=== PATIENT | female | born 1970 | race Caucasian/White ===

== ENCOUNTER 2016-09-23 21:07 | Observation (INO) | payer BC ==
[2016-09-24 00:28] LABS: Hematocrit 38 % (35-47); Hemoglobin 12.5 g/dl (12.0-16.0); Mean Corpuscular HGB Conc 33 g/dl (31-36); Mean Corpuscular Hemoglobin 32 pg (27-31); Mean Corpuscular Volume 96 fL (80-97); Mean Platelet Volume 7 um3 (7.4-10.4); Red Blood Count 3.95 10^6/ul (4.0-5.4); Red Cell Distribution Width 14 % (10.5-15); White Blood Count 6.7 10^3/ul (3.5-10.8)
[2016-09-24] MEDS ORDERED: Ondansetron INJ* 2 MG/ML VIAL IV ONE (00:31)
[2016-09-24] MEDS ORDERED: Morphine INJ* 10 MG/ML 1 ML SYRINGE ONE (00:40)
[2016-09-24 00:43] LABS: Albumin 4.4 g/dL (3.2-5.2); BUN/Creatinine Ratio 19.5 (8-20); C Reactive Protein 2.97 mg/L (< 5.00); EGFR African American 104.7 (>60); EGFR Non-African American 81.4 (>60); Globulin 2.5 g/dL (2-4); Potassium 3.7 mmol/L (3.5-5.0); Total Bilirubin 0.5 mg/dL (0.2-1.0); Total Protein 6.9 g/dL (6.4-8.9)
[2016-09-24] MEDS: Morphine INJ* 4 MG/ML 1 ML SYRINGE IV ONE ×2 (00:48→06:59)
[2016-09-24] MEDS ORDERED: Iohexol 300* (CONTRAST) 10 ML SDV IV ONE (02:16)
[2016-09-24] MEDS ORDERED: NS 0.9% 1000 ML* 1,000 ML BOLUS SCH (02:30)
--- NOTE | 2016-09-24 08:10 | ED ---
Sekou Garcia Rebecca, scribed for Lisa Smith MD on 09/23/16 at 2348 . Abdominal Pain/Female - HPI Summary HPI Summary: Pt is a 46 y/o F who presents to ED c/o abd pain. Pain began suddenly this morning upon waking up and has been constant since onset, waxing and waning in intensity. Pain is diffuse cramping without radiation and is currently moderate , ranked 5/10 though in triage it was noted to be 4/10. Sx alleviated by BM, aggravated by nothing. Additionally c/o decreased PO intake secondary to pain and nausea, which is improving. Denies diarrhea, blood in stool, fever. No PMHx diverticulitis. PMHx metastatic ovarian CA. PSHx total hysterectomy in 2008. Ovarian CA was first diagnosed in 2008, then in 2013 it metastasized to her R hip, which is inoperable. She is currently on cytoxan for chemotherapy, taken daily. Pt has had multiple prior chemo regimens. Pt states she took zofran twice today for nausea. Has a gynecologic oncolgy surgeon in [facility] Dr. Linda Yang, sees Dr. Lynne at [facility] [place], and Dr. Rivera is her PCP. - History of Current Complaint Chief Complaint: EDAbdPain Stated Complaint: ABD PAIN/UNABLE TO EAT OR DRINK Time Seen by Provider: 09/23/16 23:47 Hx Obtained From: Patient, Family/Reverse Unit Operator - female partner Hx Last Menstrual Period: hyster for CA - 07/2008 Onset/Duration: Sudden Onset, Still Present Timing: Constant Severity Initially: Moderate - 4/10 Severity Currently: Moderate Pain Intensity: 5 Pain Scale Used: 0-10 Numeric Location: Diffuse Radiates: No Character: Cramping Aggravating Factor(s): Nothing Alleviating Factor(s): Bowel Movement Associated Signs and Symptoms: Positive: Nausea - improving, Other: - Decreased PO intake. Negative: Fever, Blood in Stool, Diarrhea Allergies/Adverse Reactions: Allergies Allergy/AdvReac Type Severity Reaction Status Date / Time Rofecoxib [From Vioxx] Allergy Severe Swelling Verified 07/20/16 12:37 cats Allergy Itching Uncoded 07/20/16 12:37 SEASONAL ALLERGY Allergy SNEEZING, Uncoded 07/20/16 12:37 ITCHY WATERY EYE, RUNNY NOSE Home Medications: Home Medications Calcium [Oyster-Lul 500] 500 mg PO DAILY 09/24/16 [History Confirmed 09/24/16] Docusate Sodium [Colace] 100 mg PO DAILY 09/24/16 [History Confirmed 09/24/16] Magnesium 250 mg PO BID 09/24/16 [History Confirmed 09/24/16] PMH/Surg Hx/FS Hx/Imm Hx Previously Healthy: No - metastatic ovarian CA Endocrine/Hematology History: Reports: Hx Anemia - CHRONIC Denies: Hx Diabetes, Hx Systemic Lupus Erythematosus Cardiovascular History: Denies: Hx Congestive Heart Failure, Hx Hypertension, Hx Pacemaker/ICD, Other Cardiovascular Problems/Disorders Respiratory History: Reports: Hx Asthma - with seasonal allergies, Hx Seasonal Allergies, Hx Sleep Apnea - DENIES SHE STILL HAS IT, IMPROVED Denies: Hx Chronic Obstructive Pulmonary Disease (COPD) GI History: Reports: Hx Gastroesophageal Reflux Disease - CONTROL WITH MED, Hx Hiatal Hernia - NO PROBLEM, Other GI Disorders - CHRONIC NAUSEA HISTORY WITH CHEMO Denies: Hx Diverticulosis, Hx Ulcer History: Denies: Hx Dialysis, Hx Renal Disease Musculoskeletal History: Reports: Hx Arthritis - LEFT KNEE, Other Musculoskeletal History - TUMOR RIGHT ILIAC CREST Sensory History: Reports: Hx Cataracts - SLIGHT BILAT, Hx Contacts or Glasses - GLASSES Denies: Hx Hearing Aid Opthamlomology History: Reports: Hx Cataracts - SLIGHT BILAT, Hx Contacts or Glasses - GLASSES Neurological History: Reports: Other Neuro Impairments/Disorders - HX OF RIGHT CARPAL TUNNEL SYNDROME Psychiatric History: Reports: Hx Anxiety - CONTROL WITH MEDS, Hx Depression Denies: Hx Panic Disorder, Other Psychiatric Issues/Disorders - Cancer History Cancer Type, Location and Year: malig Right ovary Hx Chemotherapy: Yes - Surgical History Surgery Procedure, Year, and Place: 2008 HYSTERECTOMY BILATERAL S&O FOR OVARIAN CANCER, [place]. 2012 BENIGN RIGHT HIP SURGERY, [place]. 2013 LAPAROSCOPIC SLEEVE GASTRECTOMY, [facility] [place] 2010 &02/2015 INCISIONAL HERNIA REPAIR, [facility] [place]. 1998 BILATERAL KNEE ARTHROSCOPIC [place], [place] [facility]: Yes - DIFFICULTY BREATHING R/T SLEEP [facility] IN 2010 Infectious Disease History: No Infectious Disease History: Denies: Hx Clostridium Difficile, Hx Hepatitis, Hx Human Immunodeficiency Virus (HIV), Hx of Known/Suspected MRSA, Hx Shingles, Hx Tuberculosis, Hx Known/ Suspected VRE, Hx Known/Suspected VRSA, History Other Infectious Disease, Traveled Outside the [place] in Last 30 Days - Family History Known Family History: Positive: Hypertension, Other - HLD - Social History Alcohol Use: Rare Substance Use Type: Reports: Marijuana Substance Use Comment - Amount & Last Used: vaporizes it- not inhaled Smoking Status (MU): Never Smoked Tobacco Have You Smoked in the Last Year: No Review of Systems Negative: Fever Cardiovascular: Negative Respiratory: Negative Positive: Abdominal Pain - diffuse cramping, Nausea - improving, Other - Decreased PO intake; Denies blood in stool. Negative: Diarrhea Genitourinary: Negative Positive: Arthralgia - right hip pain, worsening Neurological: Negative Psychological: Normal All Other Systems Reviewed And Are Negative: Yes Physical Exam Triage Information Reviewed: Yes Vital Signs On Initial Exam: Initial Vitals Temp Pulse Resp BP Pulse Ox 97.9 F 111 18 109/74 100 09/23/16 21:10 09/23/16 21:10 09/23/16 21:10 09/23/16 21:10 09/23/16 21:10 Vital Signs Reviewed: Yes Appearance: Positive: Well-Appearing, Well-Nourished, Pain Distress Skin: Positive: Warm, Skin Color Reflects Adequate Perfusion Head/Face: Positive: Normal Head/Face Inspection Eyes: Positive: Conjunctiva Clear ENT: Positive: Normal ENT inspection Neck: Positive: Supple Respiratory/Lung Sounds: Positive: Clear to Auscultation, Breath Sounds Present , Other - No respiratory distress Cardiovascular: Positive: RRR, Pulses are Symmetrical in both Upper and Lower Extremities, Other - Brisk capillary refill Abdomen Description: Positive: Soft, McBurney's Point Tenderness, Other: - Tenderness in the RLQ at McBurney's point; Midline scar on the abdomen. Negative: Distended, Guarding, Hernia @, Peritoneal Signs, Splenomegaly Bowel Sounds: Positive: Present Musculoskeletal: Positive: Strength/ROM Intact Neurological: Positive: Sensory/Motor Intact, Alert, Oriented to Person Place, Time. Negative: Facial Droop, Focal Deficit @, Slurred Speech Psychiatric: Positive: Normal Diagnostics - Vital Signs Vital Signs Temp Pulse Resp BP Pulse Ox 09/23/16 22:37 98.3 F 74 16 130/83 98 09/23/16 22:13 99.5 F 89 131/80 95 09/23/16 21:10 97.9 F 111 18 109/74 100 - Laboratory Lab Results: Lab Results 09/24/16 09/24/16 09/24/16 Range/Units 00:16 00:16 00:16 WBC 6.7 (3.5-10.8) 10^3/ul RBC 3.95 L (4.0-5.4) 10^6/ul Hgb 12.5 (12.0-16.0) g/dl Hct 38 (35-47) % MCV 96 (80-97) fL MCH 32 H (27-31) pg MCHC 33 (31-36) g/dl RDW 14 (10.5-15) % Plt Count 211 (150-450) 10^3/ul MPV 7 L (7.4-10.4) um3 Neut % (Auto) 80.8 (38-83) % Lymph % (Auto) 13.8 L (25-47) % [place] % (Auto) 5.1 (1-9) % Eos % (Auto) 0 (0-6) % Baso % (Auto) 0.3 (0-2) % Absolute Neuts (auto) 5.4 (1.5-7.7) 10^3/ul Absolute Lymphs (auto) 0.9 L (1.0-4.8) 10^3/ul Absolute Monos (auto) 0.3 (0-0.8) 10^3/ul Absolute Eos (auto) 0 (0-0.6) 10^3/ul Absolute Basos (auto) 0 (0-0.2) 10^3/ul Absolute Nucleated RBC 0 10^3/ul Nucleated RBC % 0 Sodium 135 (133-145) mmol/L Potassium 3.7 (3.5-5.0) mmol/L Chloride 99 L (101-111) mmol/L Carbon Dioxide 29 (22-32) mmol/L Anion Gap 7 (2-11) mmol/L BUN 15 (6-24) mg/dL Creatinine 0.77 (0.51-0.95) mg/dL Est GFR ( Amer) 104.7 (>60) Est GFR (Non-Af Amer) 81.4 (>60) BUN/Creatinine Ratio 19.5 (8-20) Glucose 111 H (70-100) mg/dL Lactic Acid 0.7 (0.5-2.0) mmol/L Calcium 10.0 (8.6-10.3) mg/dL Total Bilirubin 0.50 (0.2-1.0) mg/dL AST 16 (13-39) U/L ALT 10 (7-52) U/L Alkaline Phosphatase 74 (34-104) U/L C-Reactive Protein 2.97 (< 5.00) mg/L Total Protein 6.9 (6.4-8.9) g/dL Albumin 4.4 (3.2-5.2) g/dL Globulin 2.5 (2-4) g/dL Albumin/Globulin Ratio 1.8 (1-3) Lipase 29 (11.0-82.0) U/L /11/03 Range/Units 07:00 WBC (3.5-10.8) 10^3/ul RBC (4.0-5.4) 10^6/ul Hgb (12.0-16.0) g/dl Hct (35-47) % MCV (80-97) fL MCH (27-31) pg MCHC (31-36) g/dl RDW (10.5-15) % Plt Count (150-450) 10^3/ul MPV (7.4-10.4) um3 Neut % (Auto) (38-83) % Lymph % (Auto) (25-47) % [place] % (Auto) (1-9) % Eos % (Auto) (0-6) % Baso % (Auto) (0-2) % Absolute Neuts (auto) (1.5-7.7) 10^3/ul Absolute Lymphs (auto) (1.0-4.8) 10^3/ul Absolute Monos (auto) (0-0.8) 10^3/ul Absolute Eos (auto) (0-0.6) 10^3/ul Absolute Basos (auto) (0-0.2) 10^3/ul Absolute Nucleated RBC 10^3/ul Nucleated RBC % Sodium (133-145) mmol/L Potassium (3.5-5.0) mmol/L Chloride (101-111) mmol/L Carbon Dioxide (22-32) mmol/L Anion Gap (2-11) mmol/L BUN (6-24) mg/dL Creatinine (0.51-0.95) mg/dL Est GFR ( Amer) (>60) Est GFR (Non-Af Amer) (>60) BUN/Creatinine Ratio (8-20) Glucose (70-100) mg/dL Lactic Acid 0.5 (0.5-2.0) mmol/L Calcium (8.6-10.3) mg/dL Total Bilirubin (0.2-1.0) mg/dL AST (13-39) U/L ALT (7-52) U/L Alkaline Phosphatase (34-104) U/L C-Reactive Protein (< 5.00) mg/L Total Protein (6.4-8.9) g/dL Albumin (3.2-5.2) g/dL Globulin (2-4) g/dL Albumin/Globulin Ratio (1-3) Lipase (11.0-82.0) U/L Result Diagrams: 09/24/16 00:16 09/24/16 00:16 Lab Statement: Any lab studies that have been ordered have been reviewed, and results considered in the medical decision making process. - CT CT Abd/Pel W/ Contrast CT Interpretation: Positive (See Comments) - Low grade small bowel obstruction. Right pelvic sidewall mass likely reflects neoplastic lymph nodes. Abdominal wall collection possibly hematoma from previous surgical procedure. CT Interpretation Completed By: Radiologist Re-Evaluation - Re-Evaluation First Eval Re-Evaluation Time: 05:44 Change: Improved Comment: Updated the pt on the status of the CT and the discusison with Dr. Mcclain. Second Eval Re-Evaluation Time: 08:05 Change: Improved Comment: Pt still with mild abd pain, had a loose BM, still with right hip pain. Dr. Tracy lyle to eval pt. Abdominal Pain Fem Course/Dx - Course Course Of Treatment: Pt is a 46 y/o F who presents to ED c/o constant moderate, diffuse cramping abdominal pain this morning. Sx alleviated by BM. Additionally c/o decreased PO intake secondary to pain and nausea, which is improving. Denies diarrhea, blood in stool, fever. No PMHx diverticulitis. PMHx metastatic ovarian CA. PSHx total hysterectomy in 2008. Ovarian CA was first diagnosed in 2008, then in 2013 it metastasized to her R hip, which is inoperable. She is currently on cytoxan for chemotherapy, taken daily. Discussed care of pt with Dr. Mcclain who reported he will call oncology and see if oncology will admit the pt. Pt will be admitted with Dx of abdominal pain and small bowel obstruction. Allergies noted. Pt medications reviewed this visit. - Diagnoses Provider Diagnoses: Abdominal pain, Small bowel obstruction, Metastatic malignant neoplasm to ovary - Provider Notifications Discussed Care Of Patient With: Carlos Mcclain Time Discussed With Above Provider: 05:42 Instructed by Provider To: Other - He will call oncology and see if oncology will admit the pt. He will consult. Discharge - Discharge Plan Condition: Good Disposition: ADMITTED TO [facility] Referrals: Jace Rivera MD [Primary Care Provider] - The documentation as recorded by the Sekou ornelas Rebecca accurately reflects the service I personally performed and the decisions made by me, Lisa Smith MD.
--- NOTE | 2016-09-24 08:18 | RAD ---
CLINICAL HISTORY: Abdominal pain, history of metastatic ovarian cancer COMPARISON: July 20, 2016 TECHNIQUE: Multiple contiguous axial CT scans were obtained of the abdomen and pelvis after the administration of intravenous contrast. Coronal and sagittal multiplanar reformations are submitted for review. Oral contrast was administered. Delayed images were obtained through the abdomen and pelvis. FINDINGS: LUNG BASES: The lung bases are clear. LIVER: There is small low-attenuation lesion of the right lobe of liver. This extends from the previous examination. BILE DUCTS: There is no intrahepatic or extrahepatic biliary dilatation. GALLBLADDER: The gallbladder is normal, without pericholecystic inflammatory change. PANCREAS: The pancreas is normal, without mass or ductal dilatation. SPLEEN: Normal in size and appearance. UPPER GI TRACT: Evaluation of the gastrointestinal tract is limited by incomplete gastric distention. There is a small sliding hiatal hernia. There is post surgical change to the projected tract. SMALL BOWEL AND MESENTERY: There is minimal diffuse small bowel distention without transition point to suggest obstruction. The appearance is similar to July 20, 2016 COLON: Liquid stool is noted within the proximal colon. There is enlargement of stool within the distal colon ADRENALS: Normal bilaterally. KIDNEYS: The kidneys are normal in shape, size, contour, and axis. There is no hydronephrosis or nephrolithiasis. BLADDER: The bladder is collapsed and is not well evaluated PELVIC ORGANS: The pelvic organs are not visualized. Again noted is pelvic sidewall mass further described below. AORTA: The aorta is normal. IVC: Unremarkable LYMPH NODES: There is a complex cystic and solid mass of the right iliac chain with erosion of the adjacent bone, likely representing massive confluent pathologic lymph nodes. On the current examination, this measures 0.9 x 6.3 cm transversely compared to 4.9 x 5.11 measuring a comparable levels. Subjectively, this also appears increased in size. Additionally, there are pathologic preaortic lymph nodes best seen on axial image 94 measuring 1.6 cm in short axis, not clearly appreciated on the previous examination. ABDOMINAL WALL: There is post surgical change to the anterior abdominal wall, stable from the previous examination. BONES AND SOFT TISSUES: Degenerative changes are noted of the spine. As noted above, there is resolution of the right pelvis by the side wall mass. Additionally, there is a lytic lesion of the right inferior pubic ramus OTHER: None IMPRESSION: AGAIN NOTED IS A RIGHT PELVIC SIDEWALL MASS, LIKELY REPRESENTING CONFLUENT PATHOLOGIC LYMPH NODES. THIS HAS INCREASED IN SIZE WHEN COMPARED TO JULY 20, 2016. ADDITIONALLY, THERE HAS BEEN DEVELOPMENT OF PATHOLOGIC PERIAORTIC LYMPH NODES. TAKEN TOGETHER, THIS CONCERNING FOR PROGRESSION OF METASTATIC DISEASE.
[2016-09-24] MEDS ORDERED: Morphine INJ* 10 MG/ML 1 ML SYRINGE IV PRN (09:08)
[2016-09-24] MEDS ORDERED: Ondansetron INJ* 2 MG/ML VIAL IV PRN (09:08)
[2016-09-24] MEDS ORDERED: LORazepam TAB(*) 0.5 MG PO PRN (09:14)
[2016-09-24] MEDS ORDERED: Ondansetron TAB* 4 MG PO PRN (09:14)
[2016-09-24] MEDS ORDERED: NS 0.9% 1000 ML* 1,000 ML IV SCH (09:15)
[2016-09-24] MEDS ORDERED: Scopolamine 1.5 mg* PATCH TRANSDERM SCH (10:00)
[2016-09-24] MEDS: Morphine TAB Extended Release (*) 30 MG TAB.ER PO SCH ×3 (10:35→21:25)
[2016-09-24] MEDS: Enoxaparin(*) 40 MG/0.4 ML SYR SUBCUT SCH (10:36)
[2016-09-24] MEDS: BuPROPion XL* 300 MG TAB.XL PO SCH (10:37)
--- NOTE | 2016-09-24 12:07 | HP ---
ADMISSION HISTORY AND PHYSICAL: DATE OF ADMISSION: 09/24/16 REASON FOR ADMISSION: Abdominal pain and likely small bowel obstruction in a woman with metastatic ovarian cancer. HISTORY OF PRESENT ILLNESS: Clementine Tolentino is a 46-year-old female who has a history of stage I endometrial and stage I-C ovarian cancer originally diagnosed in 2008. At the time of her JOVANNA-BSO, she was found to have a grade 2 , stage I-B endometrial cancer and a stage I-C grade 2 endometrioid ovarian cancer. She had 6 cycles of carboplatin and Taxol followed by vaginal cuff brachytherapy after the initial diagnosis. In 2014, she was found to have a rising CA-125 tumor marker and was found to have a 9 cm right pelvic sidewall recurrence of her ovarian cancer. She was through the cisplatin and Gemzar for 6 treatments along with radiation therapy, which completed in August of 2014 and subsequent to that was placed on aromatase inhibitors. She remained on these until July of 2016, when she was found to have progressive disease and was switched to daily Cytoxan with metronomic dosing. She has remained on the Cytoxan for approximately last 6 weeks and has tolerated it well. She has had some mild nausea with the Cytoxan orally, but with this has taken 1 dose of p.o. Zofran at 4 mg per day and has the scopolamine patch and tolerates it well. She reports right up through 2 days ago she was feeling well and in fact ate better than her usual on that date. She was not having any abdominal pain, any nausea or vomiting and was moving her bowels regularly right up to 09/22/16. She awoke yesterday and noticed some diffuse abdominal pain, which was totally new for her. This is in addition to the right pelvic sidewall pain and pain towards the right hip related to the mass and a bony erosion known to have located in that location. In general, she takes MS Contin 30 mg t.i.d. and this was increased from b.i.d. approximately 6 to 8 weeks ago. This, in general , usually well controls her pain. Yesterday, she did not take any extra pain medications, but felt nauseous without vomiting, and did not move her bowels, had very little in the way of p.o. intake and felt very weak and fatigued. Her partner notified me last evening that she was having continued ongoing abdominal pain along with nausea and no bowel movements with decreased urine output and recommendation was to come to the emergency room. Since in the emergency room, she has received 2 L of IV fluids along with extra IV pain medication and has started moving her bowels, has had several small bowel movements which were formed; some of these before and some after the CT scan. Subsequent to the CT scan with oral contrast, she did have 1 loose bowel movement likely related to the oral contrast. She currently reports that her abdominal pain is feeling considerably better, down from 8/10 to approximately 1 /10. However, her mouth is still dry and she still feels fairly weak and has not taken anything in by mouth at all to this point. PAST MEDICAL HISTORY: Otherwise significant for having tested negative for BRCA1 and 2 mutations, history of asthma, previous history of anemia. History of depression and anxiety. MEDICATIONS: Medications at the time of admission include: 1. Cytoxan 50 mg daily. 2. Lexapro 20 mg daily. 3. MS Contin 30 mg t.i.d. 4. Short-acting morphine 15 mg p.r.n. 5. Scopolamine patch. 6. Zofran 4 mg p.r.n. 7. Wellbutrin 300 mg daily. 8. Zyrtec 10 mg daily. 9. Caltrate. 10. Colace p.r.n. 11. Multivitamin daily. 12. Requip 1 mg daily. FAMILY HISTORY: Father at age 71 of an [place], mother with hypertension. Two uncles and 1 aunt with cancer, none with breast or ovarian cancer. Grandmother with Hodgkin's lymphoma. SOCIAL HISTORY: The patient lives with her partner. REVIEW OF SYSTEMS: Energy level has been good until yesterday. Appetite good until yesterday. Weight is stable. No significant shortness of breath, chest pain, or palpitations. No significant neurologic complaints. GI: As discussed above. Emotionally doing well. Has a decreased libido. PHYSICAL EXAMINATION GENERAL: A 46-year-old female, in no acute distress, lying comfortably in bed in the emergency room. VITAL SIGNS: Blood pressure is 105/73, pulse 63, T-max 99.5. HEENT: PERRL, EOMI. No erythema or exudate. Dry mucous membranes. NECK: No cervical, supraclavicular, or axillary adenopathy. LUNGS: Clear. HEART: Regular rate and rhythm without murmurs, rubs, or gallops. ABDOMEN: Soft with mild right lower quadrant tenderness. No masses, organomegaly are noted. No guarding or rebound. EXTREMITIES: No clubbing, cyanosis, or edema. BACK: No CVA or spinal tenderness. LABORATORY STUDIES: CBC: White count 6700, hematocrit 38, hemoglobin 12.5, platelet count 211,000 with a normal differential. Chemistry studies: Sodium 135, potassium 3.7, chloride 99, bicarb 29, BUN 15, creatinine 0.77, glucose 111. LFTs are within normal limits. CA-125 tumor maker when checked 2 weeks ago was 226 similar to the readings when she started her Cytoxan. CT scan, I have reviewed the films personally and I have also reviewed the reports of both the overnight covering radiologist and our hospital radiologist who assessed regular films. To my view, the mass in the right lower quadrant does appear to be somewhat larger than before, also there has been more erosion into the bone. In addition, there was a new 1.6 cm preaortic lymph node, which was seen before, was normal size and that has increased in size. Radiologist reading the films here does agree that the right pelvic sidewall mass has increased somewhat in size compared to July. By his report, is not reporting any significant small bowel obstruction. To my eyes certainly the bowel loops are more dilated and there are only some of the loops of small bowel that contain contrast. The covering radiologist overnight reports some likely early small bowel obstruction and by his report feels that the mass in the right pelvic sidewall is stable from the previous study. IMPRESSION: 1. A 46-year-old female with a recurrent ovarian cancer, who now presents with a 1- day history of nausea, severe abdominal pain, decreased oral intake, lack of bowel movements for at least 24-hour period or more. Since in the emergency room, after having received 2 L of IV fluids and pain medication, is feeling considerably better. She has started passing stool at this point. She also as been passing some gas per rectum. It is likely that she has an early small bowel obstruction, which is already partially relieved. Given the fact that she has already been in the emergency room for almost 12 hours and has had nothing to take p.o., I think it would be prudent for her to be admitted as an observation patient and watched as we slowly advance her diet including initially some clear liquids and then on to hopefully more of a substantial diet over the course of today or tonight. If she continues to tolerate feel well and continues to tolerate oral both liquids and solids, it is certainly possible that she may be able to go home as soon as tomorrow. We will continue her MS Michelle on her usual dose of 30 mg t.i.d. She will receive IV pain medications as needed. She will have both her Zofran p.o. and Zofran IV available to her. For nausea, will be maintained on scopolamine patch. I believe it is likely that she has had some progression in the pelvic sidewall; however, this is not necessarily enough to meet the criteria for true progression to consider stopping her Cytoxan at this time. Given her nausea, which is usually mild with Cytoxan, it will, however, be held today, so as not to complicate trying to get her rehydrated and get her to be taking in solids. She will be maintained on normal saline 100 mL per hour over the course of the day today. 2. DVT prophylaxis: Lovenox 40 mg daily. 3. History of depression and anxiety. Will be maintained on Lexapro and Wellbutrin. 4. The situation has already been discussed with the emergency room physician and also with Dr. Mcclain of Surgery, Dr. Caballero of Surgery will be coming in to further evaluate and offer further recommendations. [id number]/CPS #: [id number] MTDD
--- NOTE | 2016-09-24 13:25 | CONSULT ---
Consult Consult: Surgery Consult Asked by Dr. Molina to evaluate a pt. with metastatic ovarian cancer and signs of SBO. Ms. Tolentino is a 46 y.o. female who reports she began to feel nauseated and diffuse abdominal pain yesterday. When the pain failed to resolve and she couldn't eat anything, she came to the ER. Here a CT was done and showed signs of SBO. Since coming to the ER, however, she has had 3 BMs and has felt less nauseated till now, when she says she is beginning to "feel tight" again. She denies fever, she was well till this and has never had something like this happen before. She notes that since starting Cytoxan she has lost 15 lbs. PMHx: depression, ovarian cancer, endometrial cancer Meds: see med rec All: Vioxx SH: neg. tob, neg. EtOH, neg. IVDA ROS: neg FH: parents HTN, father of an [place] PE: general: WDWN female in NAD Vital Signs 09/23/16 09/23/16 09/23/16 21:10 22:13 22:16 Temperature 97.9 F 99.5 F Pulse Rate 111 89 Respiratory 18 Rate Blood Pressure 109/74 131/80 138/83 (mmHg) O2 Sat by Pulse 100 95 Oximetry 09/23/16 09/23/16 09/23/16 22:18 22:30 22:37 Temperature 98.3 F Pulse Rate 79 75 74 Respiratory 16 Rate Blood Pressure 130/83 130/83 (mmHg) O2 Sat by Pulse 97 94 98 Oximetry 09/23/16 09/23/16 09/23/16 23:00 23:30 23:48 Temperature Pulse Rate 71 99 Respiratory Rate Blood Pressure 117/73 125/78 (mmHg) O2 Sat by Pulse 95 99 Oximetry 09/24/16 09/24/16 09/24/16 00:01 00:04 00:48 Temperature Pulse Rate 86 Respiratory 14 Rate Blood Pressure 136/83 (mmHg) O2 Sat by Pulse 99 Oximetry 09/24/16 09/24/16 09/24/16 01:05 01:30 02:00 Temperature Pulse Rate 84 86 75 Respiratory Rate Blood Pressure 144/89 136/96 (mmHg) O2 Sat by Pulse 99 100 100 Oximetry 09/24/16 09/24/16 09/24/16 02:30 05:13 06:00 Temperature Pulse Rate 81 70 72 Respiratory Rate Blood Pressure 132/81 (mmHg) O2 Sat by Pulse 100 99 100 Oximetry 09/24/16 09/24/16 09/24/16 06:59 07:00 07:25 Temperature Pulse Rate 65 59 Respiratory 14 Rate Blood Pressure 110/53 (mmHg) O2 Sat by Pulse 100 100 Oximetry 09/24/16 09/24/16 09/24/16 07:30 07:51 08:00 Temperature Pulse Rate 60 67 Respiratory Rate Blood Pressure 104/56 124/79 (mmHg) O2 Sat by Pulse 100 100 Oximetry 09/24/16 09/24/16 09/24/16 08:02 08:30 09:00 Temperature Pulse Rate 65 64 61 Respiratory Rate Blood Pressure 97/55 (mmHg) O2 Sat by Pulse 94 100 100 Oximetry 09/24/16 09/24/16 09/24/16 09:01 09:30 09:46 Temperature 97.7 F Pulse Rate 63 61 61 Respiratory 16 Rate Blood Pressure 105/73 113/70 130/73 (mmHg) O2 Sat by Pulse 100 100 99 Oximetry 09/24/16 09/24/16 10:21 10:35 Temperature Pulse Rate 61 Respiratory 16 15 Rate Blood Pressure 130/73 (mmHg) O2 Sat by Pulse 99 Oximetry HEENT: anicteric sclerae, moist oral mucosa, neg cervica adenopathy lungs: clear to ausc. heart: reg. abd: good BS, soft, mild bilateral LQ tenderness without guarding or rebound. Well healed midline scar without hernias, no groin hernias. ext: neg. cyanosis, edema Laboratory Results - last 24 hr 09/24/16 09/24/16 09/24/16 00:16 00:16 00:16 WBC 6.7 RBC 3.95 L Hgb 12.5 Hct 38 MCV 96 MCH 32 H MCHC 33 RDW 14 Plt Count 211 MPV 7 L Neut % (Auto) 80.8 Lymph % (Auto) 13.8 L [place] % (Auto) 5.1 Eos % (Auto) 0 Baso % (Auto) 0.3 Absolute Neuts (auto) 5.4 Absolute Lymphs (auto) 0.9 L Absolute Monos (auto) 0.3 Absolute Eos (auto) 0 Absolute Basos (auto) 0 Absolute Nucleated RBC 0 Nucleated RBC % 0 Sodium 135 Potassium 3.7 Chloride 99 L Carbon Dioxide 29 Anion Gap 7 BUN 15 Creatinine 0.77 Est GFR ( Amer) 104.7 Est GFR (Non-Af Amer) 81.4 BUN/Creatinine Ratio 19.5 Glucose 111 H Lactic Acid 0.7 Calcium 10.0 Total Bilirubin 0.50 AST 16 ALT 10 Alkaline Phosphatase 74 C-Reactive Protein 2.97 Total Protein 6.9 Albumin 4.4 Globulin 2.5 Albumin/Globulin Ratio 1.8 Lipase 29 09/24/16 07:00 WBC RBC Hgb Hct MCV MCH MCHC RDW Plt Count MPV Neut % (Auto) Lymph % (Auto) [place] % (Auto) Eos % (Auto) Baso % (Auto) Absolute Neuts (auto) Absolute Lymphs (auto) Absolute Monos (auto) Absolute Eos (auto) Absolute Basos (auto) Absolute Nucleated RBC Nucleated RBC % Sodium Potassium Chloride Carbon Dioxide Anion Gap BUN Creatinine Est GFR ( Amer) Est GFR (Non-Af Amer) BUN/Creatinine Ratio Glucose Lactic Acid 0.5 Calcium Total Bilirubin AST ALT Alkaline Phosphatase C-Reactive Protein Total Protein Albumin Globulin Albumin/Globulin Ratio Lipase A/P: 46 y.o. female with metastatic ovarian cancer now with apparently resolving early SBO. Agree with clear liquids and IVF. Will check AXR in AM. Will follow. Thanks, Mykel
[2016-09-24] MEDS: Ropinirole TAB* 0.5 MG TAB PO SCH (21:27)
[2016-09-24] MEDS: CMC:Escitalopram (NF) 10 MG TAB PO SCH (21:45)
[2016-09-25 05:23] LABS: Hematocrit 32 % (35-47); Hemoglobin 10.8 g/dl (12.0-16.0); Mean Corpuscular HGB Conc 33 g/dl (31-36); Mean Corpuscular Hemoglobin 32 pg (27-31); Mean Corpuscular Volume 95 fL (80-97); Mean Platelet Volume 6 um3 (7.4-10.4); Red Blood Count 3.41 10^6/ul (4.0-5.4); Red Cell Distribution Width 14 % (10.5-15); White Blood Count 3.1 10^3/ul (3.5-10.8)
[2016-09-25 05:25] LABS: Add Diff/Slide Review? Slide Review Added; Comments Flag Yes
[2016-09-25 05:43] LABS: BUN/Creatinine Ratio 9.3 (8-20); Calcium 9.1 mg/dL (8.6-10.3); EGFR Non-African American 83.9 (>60); Potassium 3.8 mmol/L (3.5-5.0)
[2016-09-25] MEDS: Morphine TAB Extended Release (*) 30 MG TAB.ER PO SCH ×3 (08:01→21:17)
[2016-09-25] MEDS: BuPROPion XL* 300 MG TAB.XL PO SCH (08:01)
[2016-09-25] MEDS: Docusate CAP* 100 MG PO SCH (08:01)
[2016-09-25] MEDS: Enoxaparin(*) 40 MG/0.4 ML SYR SUBCUT SCH (08:02)
--- NOTE | 2016-09-25 08:16 | PN ---
Progress Note - Progress Note Date of Service: 09/25/16 Note: Surgery Ms. Tolentino reports she is tolerating clear liquids and she denies nausea. But she is not passing either stool or flatus. She has some "soreness" in the abd. Vital Signs 09/24/16 09/24/16 09/24/16 08:30 09:00 09:01 Temperature Pulse Rate 64 61 63 Respiratory Rate Blood Pressure 97/55 105/73 (mmHg) O2 Sat by Pulse 100 100 100 Oximetry 09/24/16 09/24/16 09/24/16 09:30 09:46 10:21 Temperature 97.7 F Pulse Rate 61 61 61 Respiratory 17 16 Rate Blood Pressure 113/70 130/73 130/73 (mmHg) O2 Sat by Pulse 100 99 99 Oximetry 09/24/16 09/24/16 09/24/16 10:35 12:35 15:33 Temperature 98.7 F Pulse Rate 65 Respiratory 15 15 18 Rate Blood Pressure 127/77 (mmHg) O2 Sat by Pulse 99 Oximetry 09/24/16 09/24/16 09/24/16 15:38 17:38 20:00 Temperature Pulse Rate Respiratory 17 15 16 Rate Blood Pressure (mmHg) O2 Sat by Pulse Oximetry 09/24/16 09/24/16 09/24/16 20:13 21:25 23:25 Temperature 98.5 F Pulse Rate 64 Respiratory 16 16 16 Rate Blood Pressure 120/77 (mmHg) O2 Sat by Pulse 100 Oximetry 09/25/16 09/25/16 09/25/16 00:08 05:06 07:56 Temperature 98.1 F 97.6 F 98.6 F Pulse Rate 60 65 64 Respiratory 16 16 16 Rate Blood Pressure 131/70 124/63 143/76 (mmHg) O2 Sat by Pulse 99 100 95 Oximetry 09/25/16 08:01 Temperature Pulse Rate Respiratory 18 Rate Blood Pressure (mmHg) O2 Sat by Pulse Oximetry Abd: good BS, soft, mildly tender in RUQ and RLQ, no guarding or rebound. Intake & Output 09/24/16 09/25/16 09/25/16 22:59 06:59 14:59 Intake Total 1243 0 Balance 1243 0 Intake: IV Fluids 923 NS (0.9%) 923 Oral 320 0 Other: Estimated Void Medium # Bowel Movements 0 # Voids 2 1 Laboratory Results - last 24 hr 07/09/17 07/09/17 05:05 05:05 WBC 3.1 L RBC 3.41 L Hgb 10.8 L Hct 32 L MCV 95 MCH 32 H MCHC 33 RDW 14 Plt Count 163 MPV 6 L Neut % (Auto) 64.9 Lymph % (Auto) 26.3 [place] % (Auto) 8.7 Eos % (Auto) 0 Baso % (Auto) 0.1 Absolute Neuts (auto) 2.0 Absolute Lymphs (auto) 0.8 L Absolute Monos (auto) 0.3 Absolute Eos (auto) 0 Absolute Basos (auto) 0 Absolute Nucleated RBC 0 Nucleated RBC % 0 Sodium 141 Potassium 3.8 Chloride 107 Carbon Dioxide 30 Anion Gap 4 BUN 7 Creatinine 0.75 Est GFR ( Amer) 108.0 Est GFR (Non-Af Amer) 83.9 BUN/Creatinine Ratio 9.3 Glucose 80 Calcium 9.1 AXR: some contrast into colon and gas and stool in rectum. A/P: Slight improvement, but still no movement. Would leave on clear liquids till some evidence of return of GI function.
--- NOTE | 2016-09-25 08:32 | RAD ---
HISTORY: Evaluate small bowel obstruction COMPARISONS: CT dated September 24, 2016 VIEWS: Frontal supine and upright views of the abdomen. FINDINGS: BOWEL: There is a nonspecific bowel gas pattern, with nondilated small bowel gas noted. Oral contrast is noted within the colon CALCULI: There are no abnormal calculi. BONES AND SOFT TISSUES: Degenerative changes are noted along the lower lumbar spine OTHER FINDINGS: The lung bases are clear. There is no subphrenic gas. IMPRESSION: NONSPECIFIC BOWEL GAS PATTERN. ORAL CONTRAST IS NOTED WITHIN THE COLON
[2016-09-25] MEDS: NS 0.9% 1000 ML* 1,000 ML IV SCH (11:32)
[2016-09-25] MEDS: Cetirizine* 10 MG TAB PO SCH (12:11)
[2016-09-25] MEDS: Ropinirole TAB* 0.5 MG TAB PO SCH (21:18)
[2016-09-25] MEDS: CMC:Escitalopram (NF) 10 MG TAB PO SCH (21:18)
[2016-09-26] MEDS: NS 0.9% 1000 ML* 1,000 ML IV SCH (00:45)
[2016-09-26 06:34] LABS: BUN/Creatinine Ratio 9.2 (8-20); EGFR African American 106.3 (>60); EGFR Non-African American 82.7 (>60); Potassium 3.7 mmol/L (3.5-5.0)
[2016-09-26 07:29] VITALS: BP 131/69
[2016-09-26] MEDS: Cetirizine* 10 MG TAB PO SCH (09:06)
[2016-09-26] MEDS: BuPROPion XL* 300 MG TAB.XL PO SCH (09:06)
[2016-09-26] MEDS: Morphine TAB Extended Release (*) 30 MG TAB.ER PO SCH (09:06)
[2016-09-26] MEDS: Docusate CAP* 100 MG PO SCH (09:06)
[2016-09-26] MEDS: Enoxaparin(*) 40 MG/0.4 ML SYR SUBCUT SCH (09:07)
--- NOTE | 2016-09-26 10:47 | PN ---
Progress Note - Progress Note Date of Service: 09/26/16 SOAP: Subjective: Doing very well, multiple BMs yesterday, tolerating regular diet. Ready to go home. Denies any complaints. Objective: VSS, afebrile Abdomen soft, NT, ND Assessment: Resolved SBO, doing well. Plan: Discharge to home. F/U with surgical associates as needed.
--- NOTE | 2016-09-26 11:08 | DS ---
CC: Dr. Yang, [place], [place] * DISCHARGE SUMMARY: DATE OF ADMISSION: 09/24/16 DATE OF DISCHARGE: 09/26/16 PRINCIPAL DIAGNOSES: 1. Small bowel obstruction with mild progression of disease from her ovarian cancer. 2. She has chronic pain syndrome secondary to her malignancy. HISTORY OF PRESENT ILLNESS: Briefly, patient was admitted to the hospital from the emergency room with significant abdominal pain and a history of ovarian cancer. Subsequently, she had received a CT scan of the abdomen, which revealed surgical changes of a partial gastrectomy, small hiatal hernia, the small bowel had multiple segments of proximal small bowel distended and contained fluid. Impression also showed low-grade small bowel obstruction, right pelvic sidewall mass which reflected a neoplastic lymph node, previous areas of surgical clips. Subsequent to that, the patient was seen by Surgery, Dr. Anai Caballero, who consulted and conservative measures were initiated and bowel rest. The patient did, subsequent to the bowel rest, open up and had a bowel movement this morning on 09/26/16 and has tolerated a soft diet for 24 hours. Her pain was under control throughout her hospital stay under her normal medications that she takes at home and had not required any additional IV morphine. Vital signs remained stable and afebrile throughout the course of her stay. DISCHARGE MEDICATIONS: She will be sent home on the following discharge medications: 1. Bupropion 300 mg p.o. q.a.m. 2. Calcium 500 mg p.o. daily. 3. Cetirizine 10 mg p.o. at p.m. 4. Colace 100 mg daily. 5. Lexapro 10 mg 2 tablets p.o. q.p.m. 6. one-half tab p.o. daily as needed for nausea. 7. Magnesium 250 mg p.o. twice daily. 8. Morphine extended release 15 mg 2 tabs p.o. 3 times daily. 9. Morphine 15 mg tabs p.o. 3 times daily as needed for breakthrough pain. 10. Multivitamin daily. 11. Zofran 8 mg every 6 hours as needed for nausea. 12. Ropinirole 0.5 mg tab 2 tabs p.o. at bedtime. 13. Scopolamine 1.5 mg patch transdermally every 72 hours as needed for nausea. She will follow up with Dr. Lynne in approximately 1 week. Labs to follow and call us with any further needs for abdominal pains. We will also send this discharge summary to Dr. Yang, her [facility] [employer] in [place], [place]. HOSPITAL COURSE: The patient was admitted to the hospital and placed on bowel rest and consulted with the local surgery service. Bowel rest was successful in alleviating possible early bowel obstruction. She has been instructed to continue on small meals and to go soft diet whenever needed and to call use with any additional abdominal pain. I will try to contact Dr. Yang regarding her restarting her Cytoxan. Her vital signs were stable at the time of her discharge. EMMA MAXWELL [id number]/[facility] #: [id number] MARK
== END 2016-09-26 11:00 | disposition home or self-care (01) ==
LOC: ED 21:07 → MED 09-24 09:08
PROVIDERS: ADMIT Internal Medicine Hematology & Oncology; ATTEND Internal Medicine Hematology & Oncology
DX: K56.60 Unspecified intestinal obstruction (principal); C56.9 Malignant neoplasm of unspecified ovary; C79.9 Secondary malignant neoplasm of unspecified site; G89.29 Other chronic pain; F32.9 Major depressive disorder, single episode, unspecified; F41.9 Anxiety disorder, unspecified; Z79.899 Other long term (current) drug therapy; Z88.8 Allergy status to other drugs, medicaments and biological substances
CPT/HCPCS: 36415; 74020; 74177; 80048; 80053; 83605; 83690; 85025; 86140; 96361; 96372; 96374; 96375; 96376; 99284; A9270-GY; G0378; J1642; J1650; J2270; J2405; Q9967

== ENCOUNTER 2016-10-19 18:04 | Emergency (ER) | payer BC ==
[2016-10-19] MEDS ORDERED: NS 0.9% 1000 ML* 1,000 ML IV ONE (19:28)
[2016-10-19] MEDS ORDERED: HYDROmorphone* 1 MG/ML 1 ML SYR IV SLOW PU ONE (19:28)
[2016-10-19 20:02] LABS: Hematocrit 34 % (35-47); Hemoglobin 11.2 g/dl (12.0-16.0); Mean Corpuscular HGB Conc 33 g/dl (31-36); Mean Corpuscular Hemoglobin 32 pg (27-31); Mean Corpuscular Volume 95 fL (80-97); Mean Platelet Volume 7 um3 (7.4-10.4); Red Blood Count 3.57 10^6/ul (4.0-5.4); Red Cell Distribution Width 14 % (10.5-15); White Blood Count 4.4 10^3/ul (3.5-10.8)
[2016-10-19 20:17] LABS: Albumin 3.8 g/dL (3.2-5.2); BUN/Creatinine Ratio 15.4 (8-20); Calcium 9.1 mg/dL (8.6-10.3); EGFR African American 127.3 (>60); Globulin 2.4 g/dL (2-4); Magnesium 1.8 mg/dL (1.9-2.7); Potassium 4.1 mmol/L (3.5-5.0); Total Bilirubin 0.4 mg/dL (0.2-1.0); Total Protein 6.2 g/dL (6.4-8.9)
--- NOTE | 2016-10-19 21:06 | ED ---
I, Trent,[place], scribed for Carlos Kruse MD on 10/19/16 at 1938 . Complex/Multi-Sys Presentation - HPI Summary HPI Summary: This 46 y/o female presents to ED for NIX, lower back pain, and diaphoresis after her chemo therapy this morning. Chemo therapy was first dose of this round after her last chemo in 2014. Pt took morphine and MS Contin at 1400 PM, took a nap, and woke up at 1600 PM with mid low back pain, NIX, and diaphoresis. Diaphoresis is currently spontaneously resolved, and pt states her NIX and back pain have moderately improved since the onset. Positive subjective fever. Temperature of 98.2 F noted at triage. Negative nausea. PMHx includes recurrent ovarian CA s/p chemo, radiation, and JOVANNA-BSO. Primary care involves Dr. Lynne and Dr. Yang. - History Of Current Complaint Chief Complaint: EDAllergicReaction Time Seen by Provider: 10/19/16 19:19 Hx Obtained From: Patient, Medical Records Onset/Duration: Sudden Onset, Still Present Associated Signs And Symptoms: Positive: Back Pain - mid low back pain, Fever - subjective fever, Other - NIX. Negative: Nausea, Vomiting - Allergies/Home Medications Allergies/Adverse Reactions: Allergies Allergy/AdvReac Type Severity Reaction Status Date / Time Rofecoxib [From Vioxx] Allergy Severe Swelling Verified 07/20/16 12:37 cats Allergy Itching Uncoded 07/20/16 12:37 SEASONAL ALLERGY Allergy SNEEZING, Uncoded 07/20/16 12:37 ITCHY WATERY EYE, RUNNY NOSE PMH/Surg Hx/FS Hx/Imm Hx Endocrine/Hematology History: Reports: Hx Anemia - CHRONIC Denies: Hx Diabetes, Hx Systemic Lupus Erythematosus Cardiovascular History: Denies: Hx Congestive Heart Failure, Hx Hypertension, Hx Pacemaker/ICD, Other Cardiovascular Problems/Disorders Respiratory History: Reports: Hx Asthma - with seasonal allergies, Hx Seasonal Allergies, Hx Sleep Apnea - DENIES SHE STILL HAS IT, IMPROVED Denies: Hx Chronic Obstructive Pulmonary Disease (COPD) GI History: Reports: Hx Gastroesophageal Reflux Disease - CONTROL WITH MED, Hx Hiatal Hernia - NO PROBLEM, Other GI Disorders - CHRONIC NAUSEA HISTORY WITH CHEMO Denies: Hx Diverticulosis, Hx Ulcer History: Denies: Hx Dialysis, Hx Renal Disease Musculoskeletal History: Reports: Hx Arthritis - LEFT KNEE, Other Musculoskeletal History - TUMOR RIGHT ILIAC CREST Sensory History: Reports: Hx Cataracts - SLIGHT BILAT, Hx Contacts or Glasses - GLASSES Denies: Hx Hearing Aid Opthamlomology History: Reports: Hx Cataracts - SLIGHT BILAT, Hx Contacts or Glasses - GLASSES Neurological History: Reports: Other Neuro Impairments/Disorders - HX OF RIGHT CARPAL TUNNEL SYNDROME Psychiatric History: Reports: Hx Anxiety - CONTROL WITH MEDS, Hx Depression Denies: Hx Panic Disorder, Other Psychiatric Issues/Disorders - Cancer History Cancer Type, Location and Year: malig Right ovary Hx Chemotherapy: Yes - Surgical History Surgery Procedure, Year, and Place: 2008 HYSTERECTOMY BILATERAL S&O FOR OVARIAN CANCER, [place]. 2012 BENIGN RIGHT HIP SURGERY, [place]. 2013 LAPAROSCOPIC SLEEVE GASTRECTOMY, [facility] [place]. 2010 &02/2015 INCISIONAL HERNIA REPAIR, [facility] [place]. 1998 BILATERAL KNEE ARTHROSCOPIC SURGERY, [place], [place]. 2008 & 2013 POWERPORT PLACEMENT, [place] Hx Anesthesia Reactions: Yes - DIFFICULTY BREATHING R/T SLEEP [place] IN 2010 Infectious Disease History: No Infectious Disease History: Denies: Hx Clostridium Difficile, Hx Hepatitis, Hx Human Immunodeficiency Virus (HIV), Hx of Known/Suspected MRSA, Hx Shingles, Hx Tuberculosis, Hx Known/ Suspected VRE, Hx Known/Suspected VRSA, History Other Infectious Disease, Traveled Outside the in Last 30 Days - Family History Known Family History: Positive: Hypertension, Other - HLD - Social History Alcohol Use: Rare Hx Substance Use: Yes Substance Use Type: Reports: Marijuana Substance Use Comment - Amount & Last Used: vaporizes it- not inhaled Hx Tobacco Use: No Smoking Status (MU): Never Smoked Tobacco Have You Smoked in the Last Year: No Review of Systems Positive: Fever - subjective fever. afebrile at triage, Skin Diaphoresis Negative: Vomiting, Nausea Positive: Other - mild low back pain Positive: Headache All Other Systems Reviewed And Are Negative: Yes Physical Exam Triage Information Reviewed: Yes Vital Signs On Initial Exam: Initial Vitals Temp Pulse Resp BP Pulse Ox 98.2 F 80 16 124/78 98 10/19/16 18:07 10/19/16 18:07 10/19/16 18:07 10/19/16 18:07 10/19/16 18:07 Vital Signs Reviewed: Yes Appearance: Positive: Well-Appearing, No Pain Distress Skin: Positive: Warm Head/Face: Positive: Normal Head/Face Inspection Eyes: Positive: STEVE ENT: Positive: Hearing grossly normal Neck: Positive: Supple, Nontender Respiratory/Lung Sounds: Positive: Clear to Auscultation, Breath Sounds Present Cardiovascular: Positive: RRR Abdomen Description: Positive: Nontender, Soft Bowel Sounds: Positive: Present Musculoskeletal: Positive: Strength/ROM Intact Neurological: Positive: Sensory/Motor Intact, Alert, Oriented to Person Place, Time Psychiatric: Positive: Affect/Mood Appropriate - [place] Coma Scale Coma Scale Total: 15 Diagnostics - Vital Signs Vital Signs Temp Pulse Resp BP Pulse Ox 10/19/16 18:46 75 98 10/19/16 18:45 130/61 10/19/16 18:07 98.2 F 80 16 124/78 98 - Laboratory Lab Results: Lab Results 10/19/16 10/19/16 Range/Units 19:50 19:50 WBC 4.4 (3.5-10.8) 10^3/ul RBC 3.57 L (4.0-5.4) 10^6/ul Hgb 11.2 L (12.0-16.0) g/dl Hct 34 L (35-47) % MCV 95 (80-97) fL MCH 32 H (27-31) pg MCHC 33 (31-36) g/dl RDW 14 (10.5-15) % Plt Count 189 (150-450) 10^3/ul MPV 7 L (7.4-10.4) um3 Neut % (Auto) 91.8 H (38-83) % Lymph % (Auto) 6.1 L (25-47) % [place] % (Auto) 2.0 (1-9) % Eos % (Auto) 0 (0-6) % Baso % (Auto) 0.1 (0-2) % Absolute Neuts (auto) 4.0 (1.5-7.7) 10^3/ul Absolute Lymphs (auto) 0.3 L (1.0-4.8) 10^3/ul Absolute Monos (auto) 0.1 (0-0.8) 10^3/ul Absolute Eos (auto) 0 (0-0.6) 10^3/ul Absolute Basos (auto) 0 (0-0.2) 10^3/ul Absolute Nucleated RBC 0 10^3/ul Nucleated RBC % 0 Sodium 135 (133-145) mmol/L Potassium 4.1 (3.5-5.0) mmol/L Chloride 104 (101-111) mmol/L Carbon Dioxide 27 (22-32) mmol/L Anion Gap 4 (2-11) mmol/L BUN 10 (6-24) mg/dL Creatinine 0.65 (0.51-0.95) mg/dL Est GFR ( Amer) 127.3 (>60) Est GFR (Non-Af Amer) 99.0 (>60) BUN/Creatinine Ratio 15.4 (8-20) Glucose 147 H (70-100) mg/dL Calcium 9.1 (8.6-10.3) mg/dL Magnesium 1.8 L (1.9-2.7) mg/dL Total Bilirubin 0.40 (0.2-1.0) mg/dL AST 16 (13-39) U/L ALT 8 (7-52) U/L Alkaline Phosphatase 68 (34-104) U/L Total Protein 6.2 L (6.4-8.9) g/dL Albumin 3.8 (3.2-5.2) g/dL Globulin 2.4 (2-4) g/dL Albumin/Globulin Ratio 1.6 (1-3) Result Diagrams: 10/19/16 19:50 10/19/16 19:50 Lab Statement: Any lab studies that have been ordered have been reviewed, and results considered in the medical decision making process. Re-Evaluation - Re-Evaluation First Eval Change: Improved - results d/w pt Complex Multi-Symp Course/Dx - Diagnoses Provider Diagnoses: Headache, Weakness Discharge - Discharge Plan Condition: Improved Disposition: HOME Patient Education Materials: General Headache (ED), Weakness (ED) Referrals: Jace Rivera MD [Primary Care Provider] - 2 Days Dilcia Lynne MD [Medical Doctor] - 2 Days The documentation as recorded by the Trent ornelas Soohyun accurately reflects the service I personally performed and the decisions made by , Carlos Kruse MD.
[2016-10-19 21:38] VITALS: BP 123/73
== END 2016-10-19 21:37 | disposition home or self-care (01) ==
LOC: ED 18:04
DX: R51 Headache (principal); R53.1 Weakness; F41.9 Anxiety disorder, unspecified; F32.9 Major depressive disorder, single episode, unspecified; K21.9 Gastro-esophageal reflux disease without esophagitis; J45.909 Unspecified asthma, uncomplicated; C56.9 Malignant neoplasm of unspecified ovary; D64.9 Anemia, unspecified
CPT/HCPCS: 36415; 80053; 83735; 85025; 96360; 96374; 99282; J1170

== ENCOUNTER 2017-02-12 18:41 | Emergency (ER) | payer BC ==
[2017-02-12] MEDS ORDERED: LORazepam INJ* 2 MG/ML 1 ML VIAL IV PUSH ONE ×2 (19:52→20:37)
--- NOTE | 2017-02-12 20:31 | RAD ---
INDICATION: Shortness of breath. COMPARISON: Comparison is made with a prior study from June 02, 2014. TECHNIQUE: A portable view of the chest was obtained. FINDINGS: Cardiac and mediastinal contours appear to be within normal limits. There is a central venous catheter entering on the right side. The catheter tip projects over the region of the right atrium. The lungs are clear. No pleural effusion is seen. IMPRESSION: NO EVIDENCE FOR ACUTE DISEASE.
[2017-02-12] MEDS ORDERED: Haloperidol INJ IV/IM* 5 MG/ML AMP IM ONE ×2 (20:37→22:05)
[2017-02-12] MEDS ORDERED: diPHENhydraMINE IV* 50 MG/ML 1 ml VIAL (BENADRYL) IV ONE (20:37)
[2017-02-12 20:41] LABS: Hematocrit 24 % (35-47); Hemoglobin 8.3 g/dl (12.0-16.0); Mean Corpuscular HGB Conc 35 g/dl (31-36); Mean Corpuscular Hemoglobin 32 pg (27-31); Mean Corpuscular Volume 93 fL (80-97); Mean Platelet Volume 7 um3 (7.4-10.4); Red Blood Count 2.56 10^6/ul (4.0-5.4); Red Cell Distribution Width 16 % (10.5-15); White Blood Count 4.3 10^3/ul (3.5-10.8)
[2017-02-12 20:54] LABS: Alcohol < 10 mg/dL (<10); Salicylate < 2.50 mg/dL (<30)
[2017-02-12 20:55] LABS: ALT 64 U/L (7-52); AST 53 U/L (13-39); Alkaline Phosphatase 66 U/L (34-104); Anion Gap 12 mmol/L (2-11); BUN/Creatinine Ratio 23.8 (8-20); Blood Urea Nitrogen 20 mg/dL (6-24); CO2 Carbon Dioxide 22 mmol/L (22-32); Calcium 9.5 mg/dL (8.6-10.3); Chloride 102 mmol/L (101-111); EGFR African American 94.7 (>60); EGFR Non-African American 73.7 (>60); Globulin 2.4 g/dL (2-4); Glucose 140 mg/dL (70-100); Potassium 3.6 mmol/L (3.5-5.0); Sodium 136 mmol/L (133-145); Total Protein 6.4 g/dL (6.4-8.9)
[2017-02-12 21:09] LABS: TSH (Thyroid Stimulating Horm) 1.28 mcIU/mL (0.34-5.60)
[2017-02-12] MEDS ORDERED: Iohexol 350* (CONTRAST) 500 ML MDV IV ONE (21:46)
[2017-02-12] MEDS ORDERED: diPHENhydraMINE IV* 50 MG in NS 0.9% 50 ML* 50 ML IVPB ONE (22:05)
[2017-02-12] MEDS ORDERED: diPHENhydraMINE IV* 50 MG/ML 1 ml VIAL (BENADRYL) ONE (22:07)
[2017-02-12] MEDS ORDERED: Haloperidol INJ IV/IM* 5 MG/ML AMP ONE (22:07)
--- NOTE | 2017-02-13 06:54 | ED ---
Saeed Garcia Nikita, scribed for Angelo Hu on 02/12/17 at 1945 . Psychiatric Complaint - HPI Summary HPI Summary: This patient is a 46 year old F BIBA to ED with a chief complaint of feeling anxious s/p her friend passing away today. Pt took one dose of anxiety medicine today. The patient rates the pain 0/10 in severity. Symptoms aggravated by nothing. Symptoms alleviated by nothing. Patient reports SOB and that she can t stop moving. Patient denies CP and LE pain. Pt is on chemo for ovarian CA. Last chemo treatment was 4 days ago. Pt has no hx of anxiety. - History Of Current Complaint Chief Complaint: EDMentalHealth Time Seen by Provider: 02/12/17 19:18 Hx Obtained From: Patient Hx Last Menstrual Period: hyster for CA - 07/2008 Onset/Duration: Sudden Onset, Lasting Hours, Still Present Timing: Constant Severity Currently: None Character: Anxious Aggravating Factor(s): Nothing Alleviating Factor(s): Nothing Associated Signs And Symptoms: Negative: Negative - Patient reports SOB and that she cant stop moving. Patient denies CP and LE pain. Related History: Negative For: Prior Psychiatric Issues - Allergies/Home Medications Allergies/Adverse Reactions: Allergies Allergy/AdvReac Type Severity Reaction Status Date / Time Rofecoxib [From Vioxx] Allergy Severe Swelling Verified 01/04/17 13:34 cats Allergy Itching Uncoded 12/29/16 13:12 SEASONAL ALLERGY Allergy SNEEZING, Uncoded 12/29/16 13:12 ITCHY WATERY EYE, RUNNY NOSE PMH/Surg Hx/FS Hx/Imm Hx Endocrine/Hematology History: Reports: Hx Anticoagulant Therapy, Hx Blood Transfusions - 2014, Hx Anemia Denies: Hx Diabetes, Hx Systemic Lupus Erythematosus Cardiovascular History: Denies: Hx Congestive Heart Failure, Hx Hypertension, Hx Pacemaker/ICD, Other Cardiovascular Problems/Disorders Respiratory History: Reports: Hx Asthma - with seasonal allergies, Hx Seasonal Allergies, Hx Sleep Apnea Denies: Hx Chronic Obstructive Pulmonary Disease (COPD) GI History: Reports: Hx Gastroesophageal Reflux Disease, Hx Hiatal Hernia - NO PROBLEM, Other GI Disorders - CHRONIC NAUSEA HISTORY WITH CHEMO Denies: Hx Diverticulosis, Hx Ulcer History: Denies: Hx Dialysis, Hx Renal Disease Musculoskeletal History: Reports: Hx Arthritis - Osteoarthritis in left knee, Hx Back Problems, Other Musculoskeletal History - TUMOR RIGHT ILIAC CREST Sensory History: Reports: Hx Cataracts - SLIGHT BILAT, Hx Contacts or Glasses Denies: Hx Hearing Aid Opthamlomology History: Reports: Hx Cataracts - SLIGHT BILAT, Hx Contacts or Glasses Neurological History: Reports: Other Neuro Impairments/Disorders - HX OF RIGHT CARPAL TUNNEL SYNDROME Psychiatric History: Reports: Hx Anxiety - CONTROL WITH MEDS, Hx Depression Denies: Hx Panic Disorder, Other Psychiatric Issues/Disorders - Cancer History Cancer Type, Location and Year: malig Right ovary, uterine Hx Chemotherapy: Yes - 2008;2013; 2014; 2016 Hx Radiation Therapy: Yes - 2008; 2014 - Surgical History Surgery Procedure, Year, and Place: 2008 HYSTERECTOMY BILATERAL S&O FOR OVARIAN CANCER, [place]. 2012 BENIGN RIGHT HIP SURGERY, [place]. 2013 LAPAROSCOPIC SLEEVE GASTRECTOMY, [facility] [place]. 2010 &02/2015 INCISIONAL HERNIA REPAIR, [facility] [place]. 1998 BILATERAL KNEE ARTHROSCOPIC SURG[place], [place], ports removed r/t clot not on anticoagulant. 2008 & 2013 POWERPORT PLACEMENT, [place]. 1016 POWERPORT PLACEMENT, [facility] Anesthesia Reactions: Yes - DIFFICULTY BREATHING R/T SLEEP [place] IN 2010 Infectious Disease History: Yes Infectious Disease History: Reports: Hx Clostridium Difficile - 2009 Denies: Hx Hepatitis, Hx Human Immunodeficiency Virus (HIV), Hx of Known/ Suspected MRSA, Hx Shingles, Hx Tuberculosis, Hx Known/Suspected VRE, Hx Known/ Suspected VRSA, History Other Infectious Disease, Traveled Outside the in Last 30 Days - Family History Known Family History: Positive: Hypertension, Other - HLD - Social History Alcohol Use: Rare Hx Substance Use: Yes Substance Use Type: Reports: Marijuana Substance Use Comment - Amount & Last Used: Medical Hx Tobacco Use: No Smoking Status (MU): Never Smoked Tobacco Have You Smoked in the Last Year: No Review of Systems Negative: Chest Pain Positive: Shortness Of Breath Positive: Other - denies LE pain Positive: Anxious All Other Systems Reviewed And Are Negative: Yes Physical Exam Triage Information Reviewed: Yes Vital Signs On Initial Exam: Initial Vitals Temp Pulse Resp BP Pulse Ox 98.2 F 107 19 118/81 99 02/12/17 18:47 02/12/17 18:47 02/12/17 18:47 02/12/17 18:47 02/12/17 18:47 Vital Signs Reviewed: Yes Appearance: Positive: Well-Appearing, No Pain Distress Skin: Positive: Warm, Skin Color Reflects Adequate Perfusion, Dry Head/Face: Positive: Normal Head/Face Inspection Eyes: Positive: EOMI, STEVE ENT: Positive: Normal ENT inspection Neck: Positive: Supple, Nontender Respiratory/Lung Sounds: Positive: Clear to Auscultation, Other - breathless Cardiovascular: Positive: Pulses are Symmetrical in both Upper and Lower Extremities, Tachycardia Abdomen Description: Positive: Nontender, Soft Bowel Sounds: Positive: Present Musculoskeletal: Positive: Normal, Strength/ROM Intact Neurological: Positive: Normal, Sensory/Motor Intact, Alert, Oriented to Person Place, Time Psychiatric: Positive: Anxious - Travis Coma Scale Coma Scale Total: 15 Diagnostics - Vital Signs Vital Signs Temp Pulse Resp BP Pulse Ox 02/12/17 18:47 98.2 F 107 19 118/81 99 - Laboratory Result Diagrams: 02/12/17 20:29 02/12/17 20:29 Lab Statement: Any lab studies that have been ordered have been reviewed, and results considered in the medical decision making process. - Radiology CXR Radiology Interpretation Completed By: Radiologist - No evidence for acute disease. ED physician has reviewed this radiology report and agrees. - CT CTA Chest CT Interpretation Completed By: Radiologist - No evidence of a pulmonary embolism, thoracic aortic aneurysm, or dissection. No consolidation, pneumothorax, pleural effusion, or mediastinal lymphadenopathy. Right internal jugular Mediport that terminates within the right atrium. The heart is mildly enlarged. Small hiatal hernia. Status post gastric bypass surgery. Mild spondylotic changes of the thoracic spine are noted. ED physician has reviewed this radiology report and agrees. Head CT Interpretation Completed By: Radiologist - No obvious mass or metastatic disease within the range of resolution of noncontrast CT. No hemorrhage. No edema shift or herniation. No detectable infarct. Osseous structures are intact. ED physician has reviewed this radiology report and agrees. - EKG 2238 Cardiac Rate: Tachycardia EKG Rhythm: Sinus Tachycardia - 141 bpm EKG Interpretation: No acute changes Re-Evaluation - Re-Evaluation First Eval Re-Evaluation Time: 01:25 Comment: Pt is lethargic and sleepy. Will wait for MHE. Course/Dx - Course Assessment/Plan: This patient is a 46 year old F BIBA to ED with a chief complaint of feeling anxious s/p her friend passing away today. Patient reports SOB and that she cant stop moving. Patient denies CP and LE pain. In the ED course, pt was given Ativan, Haldol, and Benadryl. CXR reveals NAD. CTA chest reveals no evidence of a pulmonary embolism, thoracic aortic aneurysm, or dissection. No consolidation, pneumothorax, pleural effusion, or mediastinal lymphadenopathy. Right internal jugular Mediport that terminates within the right atrium. The heart is mildly enlarged. Small hiatal hernia. Status post gastric bypass surgery. Mild spondylotic changes of the thoracic spine are noted. EKG reveals sinus tachycardia at 141 bpm and no acute changes. Head CT reveals no obvious mass or metastatic disease within the range of resolution of noncontrast CT. No hemorrhage. No edema shift or herniation. No detectable infarct. Osseous structures are intact. Bloodwork/UA obtained. Pt will be signed out to Dr. Noriega. - Differential Dx/Clinical Impression Differential Diagnosis/HQI/PQRI: Positive: Anxiety, Depression, Other - ovarian CA, chemotherapy Provider Diagnosis: Ovarian cancer, chemotherapy, Anxiety, Depression Discharge - Discharge Plan Condition: Stable Disposition: OTHER Discharge Disposition Comment: Pt will be signed out to Dr. Noriega, pending disposition. Referrals: Jace Rivera MD [Primary Care Provider] - The documentation as recorded by the Saeed ornelas Nikita accurately reflects the service I personally performed and the decisions made by , Angelo Hu.
--- NOTE | 2017-02-13 07:59 | RAD ---
INDICATION: Altered mental status COMPARISON: None. TECHNIQUE: Contiguous axial sections of the brain were obtained from the skull base to the vertex without contrast. FINDINGS: The ventricles, cisterns and sulci are within normal limits. The oliver-white matter differentiation is adequately maintained and there is no sulcal effacement. No significant focal abnormality or mass effect is present. There is no evidence for intracranial hemorrhage. Incidental note is made of hyperostosis frontalis interna. No significant focal osseous abnormality is present. The visualized portion of the paranasal sinuses and mastoid air cells appear clear. IMPRESSION: No acute intracranial abnormality.
--- NOTE | 2017-02-13 08:15 | RAD ---
INDICATION: Elevated d-dimer, evaluate for pulmonary embolism. COMPARISON: Comparison is made with a prior chest x-ray study from February 12, [address] of the chest from December 16, 2016. TECHNIQUE: A CT angiogram of the chest was performed with intravenous following intravenous injection of 80 ml of Omnipaque 350 nonionic contrast. Contiguous axial sections were obtained from the lung apices through the lung bases. Images were reconstructed in the coronal and sagittal planes. FINDINGS: The exam is slightly limited due to motion artifact. No intraluminal filling defect or pulmonary embolism is seen. The heart is within normal limits in size. No pericardial effusion is present. The thoracic aorta is normal in caliber and demonstrates homogeneous contrast opacification. No significant enlarged mediastinal or hilar lymph nodes are seen. There is a central venous catheter entering on the right side. The catheter tip is located within the right atrium. There is a small hiatal hernia present. The esophagus appears mildly distended. The patient is status post gastric bypass surgery. There is mild dependent bilateral lower lobe subsegmental atelectasis. No pleural effusion is seen. No significant focal osseous abnormality is seen. IMPRESSION: SLIGHTLY LIMITED EXAM, NO EVIDENCE FOR PULMONARY EMBOLISM.
[2017-02-13] MEDS ORDERED: NS 0.9% 1000 ML* 1,000 ML IV ONE (08:59)
--- NOTE | 2017-02-13 09:07 | PN ---
Progress Note - Progress Note Date of Service: 02/13/17 SOAP: Subjective: []Seen in ER @ approx. 0900 Feels sleepy at this time, though much better. Recalls events of overnight that brought her to ER. She admits that the reality of her friend committing suicide recently followed by the of her friend from advanced cancer just this week was too much. Has never experienced anything like this. Denies SOB outside of event. Denies NIX, dizziness, change in vision. No change in balance, etc. Home meds reviewed: Currently on Fentanyl 150 mcg/hr d/t progressive disease in bones Has long been on Lexapro and Wellbutrin, no xanax or ativan on our list Due to see [facility], Dr. Yang tomorrow - currently question in place of progressive disease (increasing Ca125 and progressive angelo disease s/p RT), s/ p C5 Cisplatin/Gemcitabine. Objective: [] Vital Signs Temp Pulse Resp BP Pulse Ox 98.2 F 71 18 114/72 95 02/12/17 18:47 02/13/17 09:00 02/12/17 20:49 02/13/17 09:00 02/13/17 09:00 A&Ox3, EOMI, PERRLA, excellent recall [place], good personnel scheduler = bilat. +PP=bilat., no edema Laboratory Results - last 24 hr 02/12/17 02/12/17 02/12/17 20:29 20:29 20:29 WBC 4.3 RBC 2.56 L Hgb 8.3 L Hct 24 L MCV 93 MCH 32 H MCHC 35 RDW 16 H Plt Count 311 MPV 7 L Neut % (Auto) 82.1 Lymph % (Auto) 15.5 L [place] % (Auto) 2.0 Eos % (Auto) 0 Baso % (Auto) 0.4 Absolute Neuts (auto) 3.5 Absolute Lymphs (auto) 0.7 L Absolute Monos (auto) 0.1 Absolute Eos (auto) 0 Absolute Basos (auto) 0 Absolute Nucleated RBC 0 Nucleated RBC % 0.1 INR (Anticoag Therapy) 0.80 L APTT 32.2 D-Dimer, Quantitative 638 H Sodium Potassium Chloride Carbon Dioxide Anion Gap BUN Creatinine Est GFR ( Amer) Est GFR (Non-Af Amer) BUN/Creatinine Ratio Glucose Calcium Total Bilirubin AST ALT Alkaline Phosphatase Myoglobin Troponin I B-Natriuretic Peptide 14 Total Protein Albumin Globulin Albumin/Globulin Ratio TSH Salicylates Serum Alcohol 02/12/17 20:29 WBC RBC Hgb Hct MCV MCH MCHC RDW Plt Count MPV Neut % (Auto) Lymph % (Auto) [place] % (Auto) Eos % (Auto) Baso % (Auto) Absolute Neuts (auto) Absolute Lymphs (auto) Absolute Monos (auto) Absolute Eos (auto) Absolute Basos (auto) Absolute Nucleated RBC Nucleated RBC % INR (Anticoag Therapy) APTT D-Dimer, Quantitative Sodium 136 Potassium 3.6 Chloride 102 Carbon Dioxide 22 Anion Gap 12 H BUN 20 Creatinine 0.84 Est GFR ( Amer) 94.7 Est GFR (Non-Af Amer) 73.7 BUN/Creatinine Ratio 23.8 H Glucose 140 H Calcium 9.5 Total Bilirubin 0.50 AST 53 H ALT 64 H Alkaline Phosphatase 66 Myoglobin 17.0 Troponin I 0.00 B-Natriuretic Peptide Total Protein 6.4 Albumin 4.0 Globulin 2.4 Albumin/Globulin Ratio 1.7 TSH 1.28 Salicylates < 2.50 Serum Alcohol < 10 Per reports: CT Brain negative CTA chest negative EKG sinus Tach, no ST Elevation Assessment: []46 yo female with advanced uterine cancer in ER with severe anxiety attack. Per my review of the chart and evaluation of pt., no evidence for acute incident otherwise. Plan: []1. Agree with MHE, though it does not appear she will need to be admitted at this time, reasonable to d/c home with ativan or xanax 2. No roll for MRI at this time, but will obtain if she has any recurrent MS changes 3. Suggest 1 L NS bolus IV now as was planned for hydration today with tx. 4. FU Dr. Yang tomorrow and then Dr. Lynne 02/17/17
[2017-02-13 13:25] VITALS: BP 120/67
--- NOTE | 2017-02-17 18:27 | ED ---
Jefferson Garcia Thomas, scribed for Brett Noriega MD on 02/13/17 at 0757 . Progress - Progress Note Progress Note: The patient is a sign out from Dr. Hu at shift change pending mental health evaluation, awaiting disposition. At re-evaluation at 07:50, the patient is lying comfortably in the stretcher and in no acute distress. She is awaiting mental health evaluation at this time. Mrs. Brielle Worley, an oncology PA, came to evaluate the patient. She asked that the patient be discharged. She does not recommend any further MRI's at this time. After mental health examination, the examiners recommend that the patient be discharged. She has no history of suicide. The patient has appropriate outpatient follow-up. Dr. Boyle, the patient's oncologist, has requested the patient be given benzodiazepines. Condition is stable. Course/Dx - Diagnoses Provider Diagnoses: Anxiety, Panic attacks The documentation as recorded by the Jefferson ornelas Thomas accurately reflects the service I personally performed and the decisions made by , Brett Noriega MD.
== END 2017-02-13 14:44 | disposition home or self-care (01) ==
LOC: ED 18:41
DX: F41.9 Anxiety disorder, unspecified (principal); R06.02 Shortness of breath; F41.0 Panic disorder [episodic paroxysmal anxiety]
CPT/HCPCS: 36415; 70450; 71010; 71275; 80053; 80320; 80329; 83874; 83880; 84443; 84484; 85025; 85379; 85610; 85730; 86850; 86900; 86901; 86922; 93005; 99282; 99285; G0480; J1200; J1630; J2060; P9040; Q9967